=== PATIENT | male | born 1985 | race Hispanic/Latino ===

== ENCOUNTER 2018-04-19 21:39 | Emergency (ER) | payer BC ==
[2018-04-19 22:06] VITALS: BP 136/85; PULSE 60; RESP 16; TEMP 98.3; O2SAT 98
--- NOTE | 2018-04-19 23:04 | ED PDOC ---
HPI: Male Pain Time Seen by Provider: 04/19/18 22:14 Chief Complaint (Nursing): Male Genitourinary Chief Complaint (Provider): Concern for STD exposure History Per: Patient History/Exam Limitations: no limitations Onset/Duration Of Symptoms: Days (04/17/18) Severity: None Additional Complaint(s): Patient is a 32 year old male who expresses concern for possible STD exposure. Patient reports that on Wednesday04/17/18 he had vaginal intercourse with a woman while he was on vacation in [facility]. He notes that the condom fell off as he pulled out and fell onto the bed. Patient expresses concern for possible disease transmission although his partner denied a history of STDs. Patient reports that he was seen by [facility] earlier today where he was tested for gonorrhea, chlamydia, Syphilis, and HIV. Patent reports he was given a dose of antibiotic and a shot of antibiotics in the office. Patient reports he was given an Rx for Truvada however was hesitant to fill it before his tests results came back. Patient is requesting a second opinion at this time. Patient offers no physical complaints at present. Denies a history of STDs. PMD: None Past Medical History Reviewed: Historical Data, Nursing Documentation, Vital Signs Vital Signs: Last Vital Signs Temp 98.3 F 04/19/18 22:05 Pulse 60 04/19/18 22:05 Resp 16 04/19/18 22:05 BP 136/85 04/19/18 22:05 Pulse Ox 98 04/19/18 22:05 - Medical History PMH: No Chronic Diseases - Surgical History Surgical History: Hernia Repair - Family History Family History: States: Unknown Family Hx - Social History Current smoker - smoking cessation education provided: No Alcohol: Social Drugs: Denies - Allergies Allergies/Adverse Reactions: Allergies Allergy/AdvReac Type Severity Reaction Status Date / Time No Known Allergies Allergy Verified 04/19/18 22:49 Review of Systems ROS Statement: Except As Marked, All Systems Reviewed And Found Negative Constitutional: Negative for: Fever Genitourinary Male: Negative for: Dysuria, Frequency, Hematuria, Penile Discharge, Scrotal Pain, Penile Pain Skin: Negative for: Rash Physical Exam - Reviewed Nursing Documentation Reviewed: Yes Vital Signs Reviewed: Yes - Physical Exam Appears: Positive for: Well (Resting comfortably.), Non-toxic, No Acute Distress Head Exam: Positive for: NORMOCEPHALIC Skin: Positive for: Normal Color, Warm, Dry Eye Exam: Positive for: Normal appearance ENT: Positive for: Other (Mucus membranes moist. Airway patent, (-) stridor. ) Neck: Positive for: Painless ROM, Supple Cardiovascular/Chest: Positive for: Regular Rate, Rhythm Respiratory: Positive for: Normal Breath Sounds. Negative for: Accessory Muscle Use, Respiratory Distress Gastrointestinal/Abdominal: Positive for: Soft. Negative for: Tenderness, Distended, Guarding Extremity: Positive for: Normal ROM Neurological/Psych: Positive for: Awake, Alert, Oriented (x3), Gait (steady), Other (Speech: clear) - ECG O2 Sat by Pulse Oximetry: 98 (RA) Pulse Ox Interpretation: Normal Medical Decision Making Medical Decision Makin Initial Impression: concern for STD exposure Plan: Risks and benefits of PEP discussed at length with the patient. Patient states he would prefer for his results to return before starting the Truvada. Patient advised to follow up again in 6 months even if asymptomatic for repeat testing. Patient in agreement with plan. Based on history, exam and diagnostic results, plan will be for outpatient follow up. Patient instructed to follow-up with pmd / referral provided / the clinic in 1- 2 days without fail. Return to the emergency room at any time for any new or worsening symptoms. Patient states he fully agrees with and understands discharge instructions. States that he agrees with the plan and disposition. Verbalized and repeated discharge instructions and plan. I have given the patient opportunity to ask any additional questions. Disposition - Clinical Impression Clinical Impression: Possible exposure to STD - Patient ED Disposition Is Patient to be Admitted: No Counseled Patient/Family Regarding: Studies Performed, Diagnosis, Need For Followup - Disposition Referrals: primary, doctor [Other] Disposition: Routine/Home Disposition Time: 23:00 Condition: STABLE Additional Instructions: REPEAT TESTING IN 6 MONTHS. The emergency medical care you received today was directed at your acute symptoms. If you were prescribed any medication, please fill it and take as directed. It may take several days for your symptoms to resolve. Return to the Emergency Department if your symptoms worsen, do not improve, or if you have any other problems. Please contact your doctor in 2 days for re-evaluation and follow up / or call one of the physicians/clinics you have been referred to that are listed on the Patient Visit Information form that is included in your discharge packet. Bring any paperwork you were given at discharge with you along with any medications you are taking to your follow up visit. Our treatment cannot replace ongoing medical care by a primary care provider (PCP) outside of the emergency department. Instructions: Screening for Sexually Transmitted Infections, Sexually- Transmitted Diseases, STD Prevention Print Language: PORTUGUESE - POA Present On Arrival: None
== END 2018-04-19 23:30 | disposition home or self-care (01) ==
LOC: H.ER 21:39
DX: Z20.2 Contact with and (suspected) exposure to infections with a predominantly sexual mode of transmission (principal)